=== PATIENT | female | born 1955 | race Caucasian/White ===

== ENCOUNTER 2023-08-03 11:09 | Emergency (ER) | payer OTHER, SELFPAY ==
[2023-08-03 11:15] VITALS: BP 129/77
[2023-08-03 12:06] LABS: % Basophils 0.9 % (0-2); % Eosinophils 5.5 % (0-6); % Immature Granulocytes 0.4 % (0-0.5); % Lymphocytes 27.9 % (20.5-51.1); % Monocytes 13.7 % (1.7-9.3); % Neutrophils 51.6 % (42.2-75.2); Absolute Basophils 0.1 10^3/uL (0-0.2); Absolute Eosinophils 0.4 10^3/uL (0-0.7); Absolute Lymphocytes 2.1 10^3/uL (1.2-3.4); Absolute Neutrophils 3.9 10^3/uL (1.4-6.5); Hematocrit 38.7 % (37.0-47.0); Hemoglobin 13.2 g/dL (12.0-16.0); Mean Corp Hgb Conc. 34.1 g/dL (33.0-37.0); Mean Corpuscular Hgb 29.8 pg (27.0-31.0); Mean Corpuscular Volume 87.4 fL (81.0-99.0); Mean Platelet Volume 9.2 fL (7.4-10.4); Nucleated Red Blood Cells % 0 %; Platelet Count 227 10^3/uL (130-400); Red Blood Cell Count 4.43 10^6/uL (4.20-5.40); Red Cell Dist. Width 12.8 % (11.5-14.5); White Blood Cell Count 7.6 10^3/uL (4.8-10.8)
[2023-08-03 12:28] LABS: ALT (SGPT) 31 U/L (0-35); AST (SGOT) 31 U/L (14-36); Albumin 4.3 g/dl (3.5-5.0); Alkaline Phosphatase 60 U/L (38-126); Blood Urea Nitrogen 9 mg/dl (7-17); Calcium 9.6 mg/dl (8.4-10.2); Carbon Dioxide 28 mmol/L (22-30); Chloride 98 mmol/L (98-107); Glucose 99 mg/dl (70-99); Potassium 4.4 mmol/L (3.5-5.1); Sodium 132 mmol/L (135-145); Total Bilirubin 0.5 mg/dl (0.2-1.3); Total Protein 6.6 g/dl (6.3-8.2); eGFR > 60.00
--- NOTE | 2023-08-03 13:03 | ED.GENMED ---
History of Present Illness
<Enid Ramsey PA-C - Last Filed: 08/03/23 18:18>
General
Chief Complaint: Breathing Problem
Source: patient
Exam Limitations: none
Time Seen by Provider: 08/03/23 12:22
Nursing documentation reviewed up to this point in time: agreed with
Travel History
Have you had any contact with someone who has COVID-19?: No
Do you have any symptoms of coronavirus? Fever > 100 degrees, chills, cough, shortness of breath, sore throat, loss of taste or smell, muscle aches, or headache?: No
History of Present Illness
History of Present Illness:
Patient is a 68-year-old female with history von Willebrand presenting to the emergency department for worsening shortness of breath in setting of URI symptoms. Patient reports initial onset of symptoms approximately 8 days ago with sore throat,
nasal congestion, cough. Symptoms persisted and she was seen at an urgent care in [place] this past Wednesday. At that point she was started on a course of Augmentin. She is taking 3 days of Augmentin and has not seen much improvement in
symptoms. Starting today she felt like she was having some worsening shortness of breath and chest pressure and became concerned about a developing pneumonia. She called her primary care who recommended she come to the emergency department for
chest x-ray. Patient does have an inhaler at home that she has been using with short-lived improvement in shortness of breath.
Patient denies any fevers, chills, chest pain. Patient denies any lower leg swelling or pain. Patient denies any hemoptysis.
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 No recent surgeries.
Past History
<Enid Ramsey PA-C - Last Filed: 08/03/23 18:18>
Past History
ED Past Medical History: Other (Breast cancer, von Willebrand's disease, PE)
ED Past Surgical History: Other (agree with documented pshx. Had bilateral breast mastectomy 2005 at [facility]. Had dense breasts with diffuse calcifications, DCIS left breast, LCIS right breast, all non invasive so she chose to have her breasts
removed and replaced. Had no radiation or chemo. Is followed every [address] Cortes, endocrinology who said she walked away with no residual breast cancer. Had gene test which was neg. 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 Last visit to ob/gynn is
next month. Saw PMD last week.)
Social History
Tobacco: Non-smoker
Personal:
Living: with family
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
Review of Systems
<Enid Ramsey PA-C - Last Filed: 08/03/23 18:18>
Review of Systems
Allergies reviewed?: Yes
All Other Systems: ROS reviewed and negative except as documented in HPI and ROS
Phy Exam
<Enid Ramsey PA-C - Last Filed: 08/03/23 18:18>
Physical Exam
Physical Exam:
Vitals: Patient's vital signs are stable. Afebrile
General: Patient is well appearing, no acute distress. Nontoxic-appearing
Skin: Warm and dry, no rashes or lesions
Head: Normocephalic, atraumatic
Eyes: Sclera nonicteric. EOMs intact. No nystagmus.
Throat: Protecting airway. Posterior pharynx not erythematous without any tonsillar edema or exudates.
Neck: Normal ROM, no cervical spine tenderness, no meningismus. Trachea midline
Cardiac: Regular rate and rhythm, no murmurs.
Pulm: Normal respiratory effort. No evidence of respiratory distress. Lungs relatively clear bilaterally with no wheezes, rales, rhonchi heard on exam. Oxygen saturation 97 on room air.
Abdomen: No abdominal tenderness.
Extremities: No evidence of cyanosis or edema. Bilateral calves without any edema or tenderness. DP pulses palpable and equal bilateral. No palpable cord
Neuro: AAOx3. CN II-XII intact. No focal neurologic deficits.
Psychiatric: Normal affect.
Scores
<Enid Ramsey PA-C - Last Filed: 08/03/23 18:18>
Heart Failure Risk
Heart Failure Risk Score: Not Applicable
Course
<Enid Ramsey PA-C - Last Filed: 08/03/23 18:18>
Orders/Labs/Results
Orders:
Orders
08/03/23 11:19
CR Chest - 2 Views Urgent
Comment:
Reason For Exam: cough, sob for 1 week.
08/03/23 11:57
Complete Blood Count/With Diff Urgent
Comprehensive Metabolic Panel Urgent
Abnormal Lab Results
08/03/23
11:57
Absolute Monos (auto) 1.0 H 10^3/uL
(0.1-0.6)
Monocytes % 13.7 H %
(1.7-9.3)
Sodium 132 L mmol/L
(135-145)
08/03/23 11:57
08/03/23 11:57
Vital Signs
Initial and Last Documented VS:
Initial Vital Signs
Temp Pulse Resp BP Pulse Ox
97.5 F 69 18 129/77 97
08/03/23 11:15 08/03/23 11:15 08/03/23 11:15 08/03/23 11:15 08/03/23 11:15
Last Documented Vital Signs
Temp Pulse Resp BP Pulse Ox
97.5 F 64 18 115/68 99
08/03/23 11:15 08/03/23 13:27 08/03/23 11:15 08/03/23 13:27 08/03/23 13:27
<Andres Lebron MD - Last Filed: 08/03/23 13:28>
Orders/Labs/Results
Orders:
Orders
08/03/23 11:19
CR Chest - 2 Views Urgent
Comment:
Reason For Exam: cough, sob for 1 week.
08/03/23 11:57
Complete Blood Count/With Diff Urgent
Comprehensive Metabolic Panel Urgent
Abnormal Lab Results
08/03/23
11:57
Absolute Monos (auto) 1.0 H 10^3/uL
(0.1-0.6)
Monocytes % 13.7 H %
(1.7-9.3)
Sodium 132 L mmol/L
(135-145)
08/03/23 11:57
08/03/23 11:57
Vital Signs
Initial and Last Documented VS:
Initial Vital Signs
Temp Pulse Resp BP Pulse Ox
97.5 F 69 18 129/77 97
08/03/23 11:15 08/03/23 11:15 08/03/23 11:15 08/03/23 11:15 08/03/23 11:15
Last Documented Vital Signs
Temp Pulse Resp BP Pulse Ox
97.5 F 64 18 115/68 99
08/03/23 11:15 08/03/23 13:27 08/03/23 11:15 08/03/23 13:27 08/03/23 13:27
<Enid Ramsey PA-C - Last Filed: 08/03/23 18:18>
MDM/Problems Addressed
Differential Diagnosis Includes:
Not limited to: Viral URI, bronchitis, sinusitis, pneumonia, doubt PE or ACS
MDM/Problems Addressed:
68-year-old female presenting with worsening shortness of breath in the setting of recent URI currently on antibiotics. Patient on day 3 of Augmentin. No fever, chills. Vital signs are stable. Patient is afebrile with normal oxygen saturation on
room air. She is well-appearing, nontoxic. Exam as above. Her lungs are relatively clear bilaterally in no apparent respiratory distress. She does have occasional dry cough. There is no clinical evidence of DVT on exam. Vital signs normal.
Labs obtained in triage noted. No clinically significant abnormalities. Chest x-ray was performed which shows no evidence of acute lobar pneumonia.
Suspect symptoms are related to viral bronchitis. 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 Although her history of von Willebrand's does make this much more unlikely. Recommended D-dimer test, although I do think PE is
unlikely. Patient very reluctant to stay for testing and ultimately declines. She is aware of risks associated with not receiving D-dimer lab test. Return precautions discussed at length. Will change antibiotics to doxycycline to cover for
atypical pathogens. Will do short course of steroid as patient has prednisone at home. Patient will follow with primary care provider all questions answered. Patient comfortable with plan.
Chronic conditions affecting care:
N/A
Acute Exacerbation and/or Progression of Chronic Illness:
N/A
<Enid Ramsey PA-C - Last Filed: 08/03/23 18:18>
*Radiology
Radiology exam reviewed: preliminary read by ED provider and radiology read reviewed
*Pulse Oximetry
Patient hypoxic: no
*EKG
Interpreted by ED Provider?: NA
*Health Concierge Interpretation
Rate: Health Concierge- N/A
*Critical Care Note
Total Time (30-74mins, 75-104mins- exclusive of procedures): Not Applicable
ED Attending Note
<Enid Ramsey PA-C - Last Filed: 08/03/23 18:18>
-
Portions of this chart may have been created with voice recognition software.� Occasional wrong word or��sound alike� substitutions may have occurred due to the inherent limitations of voice recognition software.
<Andres Lebron MD - Last Filed: 08/03/23 13:28>
ED Attending Note
Patient seen and examined by attending physician: Yes
I performed the substantive portion of visit, reviewed & personally made and approve the management plan that is documented in note by myself or ALEJANDRINA.: Yes
ED Attending Note:
68-year-old female URI symptoms for days. Some congestion some cough. Ear fullness. No shortness of breath pleuritic pain leg pain leg swelling or other complaints. Started Augmentin 3 days ago.
On exam patient is nontoxic in no distress. Lungs are relatively clear. Occasional dry cough. Speech is normal. No drooling or stridor. No lower extremity swelling or cord.
Impression likely ongoing URI/sinusitis. 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 However she has von Willebrand's disease and was very reluctant to stick around for this testing. Admittedly very
low suspicion for pulmonary emboli given no pleuritic pain no true shortness of breath more with coughing and congestion. No leg pain no leg swelling. 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 Patient is aware of the risk
of not doing a D-dimer and the reason for that remote workup. She elected to hold off on this testing. We will change for atypical coverage and do a short course of steroids.
Discharge Plan
Departure
Patient Disposition: Home (Routine Discharge)
Date of Disposition: 08/03/23
Time of Disposition: 13:09
Patient with high blood pressure during this ER visit?: No
Condition: Good
Covid-19: Not Applicable
Discharge Problem:
Acute bronchitis
Instructions: Shortness of Breath (Dyspnea) (DC), Bronchitis, Adult ED
Prescriptions:
New
doxycycline monohydrate 100 mg capsule
100 mg PO BID 10 Days Qty: 20 0RF
No Action
acetaminophen [Tylenol Arthritis] 650 MG tablet extended release
650 mg PO PRN PRN (Reason: pain)
cefadroxil 500 MG capsule
500 mg PO BID
mupirocin 1 APPLIC ointment
1 applic topical DAILY
diazepam 5 MG tablet
5 mg PO TIDPRN PRN (Reason: anxiety)
bupropion HCl 150 MG tablet extended release 24 hr
150 mg PO DAILY
amoxicillin-pot clavulanate 1 TABLET tablet
1 tab PO Q12 Qty: 14 0RF
hydrochlorothiazide 12.5 MG tablet
12.5 mg PO DAILY Qty: 7 0RF
amoxicillin-pot clavulanate 1 TABLET tablet
1 tab PO Q12 Qty: 13 0RF
Activity Restrictions/Additional Instructions:
- Return to the emergency department with any high fevers, worsening shortness of breath, chest pain, lower leg swelling or pain, severe abdominal pain, worsening in current symptoms, or any other concerns
-Your x-ray showed no evidence of pneumonia today.
-A prescription for doxycycline has been sent to your pharmacy. You can stop taking the Augmentin and switch to doxycycline.
-As discussed�you can take prednisone that you have at home. You can take 40 mg for 3 days, then 30 mg for 3 days, then 20 mg for 3 days, then 10 mg for 3 days
-Stay well-hydrated. Continue to use inhalers and nasal rinses as prescribed
-Follow-up with your primary care provider for further evaluation/management.
Interventions
Interventions:
*General Assessment Last Done: 08/03/23 13:27
*Neglect/Abuse Screening Last Done: 08/03/23 13:27
*Nursing Disposition Last Done: 08/03/23 13:27
ED- Cardiac Assessment Last Done: 08/03/23 13:25
ED- Pulmonary Assessment Last Done: 08/03/23 13:25
Discharge Date and Time
Discharge Date/Time: 08/03/23 13:28
Print Language: FIJIAN
[2023-08-03 13:26] VITALS: BP 115/68
[2023-08-03 13:27] VITALS: BP 115/68
== END 2023-08-03 13:28 | disposition home or self-care (01) ==
LOC: EMR 11:09
PROVIDERS: Emergency Medicine; EMERGENCY PHYSICIAN Emergency Medicine; FAMILY PHYSICIAN Student in an Organized Health Care Education/Training Program
DX: J20.9 Acute bronchitis, unspecified (principal); D68.00 Von Willebrand disease, unspecified; Z85.3 Personal history of malignant neoplasm of breast
CPT/HCPCS: 99283; 71046; 80053; 85025

== ENCOUNTER 2023-11-10 12:57 | Emergency (ER) | payer OTHER, SELFPAY ==
[2023-11-10 12:57] VITALS: BMI 22.2
[2023-11-10 12:59] VITALS: BP 135/83
--- NOTE | 2023-11-10 13:02 | ED.PDOC.TRB ---
ED Provider Triage
-
Patient seen by provider in Triage?: Seen in Triage
A medical screening examination has been initiated by a qualified medical provider. Based on the assessment performed at this time, it has been determined that an emergent medical condition may exist and the patient has been informed that further
medical evaluation and possible additional diagnostic testing may be needed.
HPI: This is a medical evaluation conducted in person to initiate diagnostic evaluation and provide initial therapeutics. Please see further documentation by the treating clinician.
GENERAL: Alert ,tearful
EYE: No visual abnormalities.
NECK: Trachea midline
ENT: No visible abnormalities.
LUNGS: No acute respiratory distress
NEUROLOGICAL: Alert and oriented
SKIN: no visible lesions.
MUSCULOSKELETAL: Moving extremities normally
PSYCH: Normal and appropriate interaction.
68-year-old female presenting to the emergency department 3 days after a slip in the bathroom where she hit her right forehead. She not lose consciousness slid to the ground did not sustain any additional injuries. Feels well at this point but
does have a history of von Willebrand disease so was concerned there could be some underlying injury. Head CT was ordered for further assessment. Otherwise very well-appearing here.
[2023-11-10 14:01] VITALS: BP 118/69
[2023-11-10 14:04] VITALS: BP 118/69
--- NOTE | 2023-11-10 14:04 | ED.GENMED ---
History of Present Illness
General
Chief Complaint: Fall
Source: patient
Time Seen by Provider: 11/10/23 13:50
History of Present Illness
History of Present Illness:
68yoF with a history of von Willebrand disease presenting for evaluation after a fall 3 days ago. Patient was getting into a bathtub when she slipped. She struck her head and face against the wall of the tub. There was no LOC. Patient was having
neck pain after the injury which has improved after seeing a chiropractor. Her current symptoms include a headache and pain with swallowing. She is worried that she has a brain bleed due to her history of von Willebrand disease. She denies any
visual changes, vomiting, dizziness, weakness, paresthesias. She is not on any blood thinners.
Past History
Past History
ED Past Medical History: Other (Breast cancer, von Willebrand's disease, PE)
ED Past Surgical History: Other (agree with documented pshx. Had bilateral breast mastectomy 2005 at [facility]. Had dense breasts with diffuse calcifications, DCIS left breast, LCIS right breast, all non invasive so she chose to have her breasts
removed and replaced. Had no radiation or chemo. Is followed every [address] Cortes, endocrinology who said she walked away with no residual breast cancer. Had gene test which was neg. Every other 6 months sees PIGMENT PROCESSOR. Last visit to ob/gynn is
next month. Saw PMD last week.)
Social History
Tobacco: Non-smoker
Personal:
Living: with family
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
Phy Exam
General Physical Exam
General Presentation: well appearing and no apparent distress
General age: appears stated age
General Skin: warm and dry
General Habitus: normal
General Mental: alert
ENT Exam
ENT Exam: TM's normal (No hemotympanum), neck supple and other (Normal phonation. Tolerating oral secretions without difficulty. No anterior neck tenderness. No carotid bruits. )
Eye Exam
Eye Exam: PERRL
Pulmonary Exam
Pulmonary Exam: lungs clear, no respiratory distress, chest non tender and no crackles
Gastrointestinal Exam
Gastrointestinal Exam: non tender, soft and non distended
Neurological Exam
Neurological Exam: alert
[place] Coma Scale
Eye Opening: Spontaneous
Verbal Response: Oriented
Motor Response: Obeys Commands
GCS Total Score: 15
Skin Exam
Skin Exam: normal color and warm/dry
Psychiatric Exam
Psychiatric Exam: normal mood/affect
Course
Orders/Labs/Results
Orders:
Orders
11/10/23 13:00
CT Head W/o Iv Contrast Urgent
Comment:
Reason For Exam: fall hit head right frontal, VWD
11/10/23 14:03
CT Cervical Spine W/o Iv Contr Urgent
Comment:
Reason For Exam: Neck pain, fall
Vital Signs
Initial and Last Documented VS:
Initial Vital Signs
Temp Pulse Resp BP Pulse Ox
98.5 F 73 18 135/83 98
11/10/23 12:59 11/10/23 12:59 11/10/23 12:59 11/10/23 12:59 11/10/23 12:59
Last Documented Vital Signs
Temp Pulse Resp BP Pulse Ox
98.0 F 72 16 121/69 100
11/10/23 14:04 11/10/23 16:22 11/10/23 16:22 11/10/23 16:22 11/10/23 16:22
MDM/Problems Addressed
Differential Diagnosis Includes:
68yoF here after a fall with head strike 3 days ago. C/o pain with swallowing. Hx of von Willebrand disease. Vitals are stable. She is awake, alert, with a GCS of 15. No external signs of head trauma on exam. No anterior neck tenderness or skin
changes. Phonation is normal. Differential diagnosis includes but is not limited to: closed head injury, concussion, intracranial hemorrhage, fracture
Initial ED plan: Check CT head and cervical spine.
*Critical Care Note
Total Time (30-74mins, 75-104mins- exclusive of procedures): Not Applicable
Update Note
Update Note:
Imaging is negative for traumatic injuries. She is stable for discharge. Supportive care discussed. Advised f/u with PCP. She was discharged in stable condition.
ED Attending Note
-
Portions of this chart may have been created with voice recognition software.� Occasional wrong word or��sound alike� substitutions may have occurred due to the inherent limitations of voice recognition software.
Discharge Plan
Departure
Patient Disposition: Home (Routine Discharge)
Date of Disposition: 11/10/23
Time of Disposition: 16:15
Patient with high blood pressure during this ER visit?: No
Discharge Problem:
Fall from slip, trip, or stumble, Closed head injury, Cervical muscle strain
Instructions: Cervical Sprain ED
Prescriptions:
No Action
acetaminophen [Tylenol Arthritis] 650 MG tablet extended release
650 mg PO PRN PRN (Reason: pain)
cefadroxil 500 MG capsule
500 mg PO BID
mupirocin 1 APPLIC ointment
1 applic topical DAILY
diazepam 5 MG tablet
5 mg PO TIDPRN PRN (Reason: anxiety)
bupropion HCl 150 MG tablet extended release 24 hr
150 mg PO DAILY
amoxicillin-pot clavulanate 1 TABLET tablet
1 tab PO Q12 Qty: 14 0RF
hydrochlorothiazide 12.5 MG tablet
12.5 mg PO DAILY Qty: 7 0RF
amoxicillin-pot clavulanate 1 TABLET tablet
1 tab PO Q12 Qty: 13 0RF
doxycycline monohydrate 100 mg capsule
100 mg PO BID 10 Days Qty: 20 0RF
Referrals:
Simran Bae MD [Family Provider] -
Stand Alone Forms: Return to Work
Activity Restrictions/Additional Instructions:
Apply ice to affected area. Take Tylenol as needed for pain.
Please follow-up with your family doctor. Return to the ER with any new or worsening symptoms.
Interventions
Interventions:
*Risk Screen - Suicide Last Done: 11/10/23 13:53
*General Assessment Last Done: 11/10/23 13:53
*Neglect/Abuse Screening Last Done: 11/10/23 13:53
ED- Fall Risk Assessment Last Done: 11/10/23 16:22
*ED COVID-19 Vaccine History Last Done: 11/10/23 13:53
*Nursing Disposition Last Done: 11/10/23 16:23
ED-Musculoskeletal Assessment Last Done: 11/10/23 13:53
ED- Neurological Assessment Last Done: 11/10/23 13:53
ED-Skin Assessment Last Done: 11/10/23 13:53
Discharge Date and Time
Discharge Date/Time: 11/10/23 16:24
Print Language: GERMAN
[2023-11-10 16:22] VITALS: BP 121/69
== END 2023-11-10 16:24 | disposition home or self-care (01) ==
LOC: EMR 12:57
PROVIDERS: EMERGENCY PHYSICIAN Emergency Medicine; FAMILY PHYSICIAN Student in an Organized Health Care Education/Training Program
DX: S09.90XA Unspecified injury of head, initial encounter (principal); S16.1XXA Strain of muscle, fascia and tendon at neck level, initial encounter; W01.0XXA Fall on same level from slipping, tripping and stumbling without subsequent striking against object, initial encounter; D68.00 Von Willebrand disease, unspecified; Z85.3 Personal history of malignant neoplasm of breast
CPT/HCPCS: 99284; 70450; 72125

== ENCOUNTER → 2024-02-29 10:44 | Outpatient (REF) | payer OTHER, SELFPAY | LOC: WDC 10:44 | PROVIDERS: ATTENDING PHYSICIAN Internal Medicine Hematology; FAMILY PHYSICIAN Family Medicine | DX: N63.31 Unspecified lump in axillary tail of the right breast (principal); R59.1 Generalized enlarged lymph nodes | CPT/HCPCS: 76642 ==

== ENCOUNTER 2024-07-25 03:03 | Emergency (ER) | payer OTHER, SELFPAY ==
[2024-07-25 03:03] VITALS: BMI 27.3
[2024-07-25 03:05] VITALS: BP 138/78
[2024-07-25 03:32] LABS: % Basophils 0.5 % (0-2); % Eosinophils 5.9 % (0-6); % Immature Granulocytes 0.3 % (0-0.5); % Lymphocytes 19.2 % (20.5-51.1); % Monocytes 8.5 % (1.7-9.3); % Neutrophils 65.6 % (42.2-75.2); Absolute Basophils 0.1 10^3/uL (0-0.2); Absolute Eosinophils 0.6 10^3/uL (0-0.7); Absolute Lymphocytes 2.1 10^3/uL (1.2-3.4); Absolute Monocytes 0.9 10^3/uL (0.1-0.6); Absolute Neutrophils 7.1 10^3/uL (1.4-6.5); Hematocrit 29.9 % (37.0-47.0); Hemoglobin 10.4 g/dL (12.0-16.0); Mean Corp Hgb Conc. 34.8 g/dL (33.0-37.0); Mean Corpuscular Hgb 30.2 pg (27.0-31.0); Mean Corpuscular Volume 86.9 fL (81.0-99.0); Mean Platelet Volume 9.2 fL (7.4-10.4); Nucleated Red Blood Cells % 0 %; Platelet Count 201 10^3/uL (130-400); Red Blood Cell Count 3.44 10^6/uL (4.20-5.40); Red Cell Dist. Width 12.7 % (11.5-14.5); White Blood Cell Count 10.8 10^3/uL (4.8-10.8)
[2024-07-25 03:37] LABS: Urine Albumin Negative (Neg - Trace); Urine Bilirubin Negative (Negative); Urine Character Slightly Cloudy (Clear); Urine Color Yellow; Urine Glucose Negative (Negative); Urine Ketone Negative (Negative); Urine Leukocyte Negative (Negative); Urine Nitrite Negative (Negative); Urine Occult Blood 2+ (Negative); Urine Urobilinogen Negative (Neg - 1+)
[2024-07-25 03:57] LABS: Lactic Acid 0.6 mmol/L (0.7-2.0)
[2024-07-25 03:58] LABS: ALT (SGPT) 64 U/L (0-35); AST (SGOT) 65 U/L (14-36); Albumin 4.2 g/dl (3.5-5.0); Alkaline Phosphatase 84 U/L (38-126); Blood Urea Nitrogen 9 mg/dl (7-17); Calcium 8.9 mg/dl (8.4-10.2); Carbon Dioxide 26 mmol/L (22-30); Chloride 95 mmol/L (98-107); Glucose 103 mg/dl (70-99); Potassium 4.4 mmol/L (3.5-5.1); Sodium 125 mmol/L (135-145); Total Bilirubin 0.5 mg/dl (0.2-1.3); Total Protein 6.5 g/dl (6.3-8.2); eGFR > 60.00
[2024-07-25 04:04] LABS: Urine Squamous Cell 26-30 /LPF (Few)
[2024-07-25 04:05] LABS: Urine White Cell 0-2 /HPF (0-5)
[2024-07-25 05:51] VITALS: BP 122/59
[2024-07-25 06:00] VITALS: BP 124/61
--- NOTE | 2024-07-25 06:17 | ED.GENMED ---
History of Present Illness
<COSME Mathis - Last Filed: 07/25/24 10:52>
General
Chief Complaint: Post Operative Problem(s)
Source: patient
Exam Limitations: none
Time Seen by Provider: 07/25/24 06:03
Nursing documentation reviewed up to this point in time: agreed with
History of Present Illness
History of Present Illness:
Patient is a 69-year-old female with history of von Willebrand's status post laparoscopic total abdominal hysterectomy with bladder sling and anal rectal wall reconstruction. The surgery was done at [facility] on Wednesday 4 days ago by
Zamzam Young(urogynecology) she does have a history of von Willebrand's and took intranasal Stimate yesterday as instructed. She presents here complaining increasing abdominal pain swelling and now feels hard to take a deep breath because of the
discomfort. This pain is got increasingly worse over the past several days but worsened yesterday. She has been taking her Dilaudid along with Tylenol. Her last dose of Dilaudid was 1 PM yesterday. She is on MiraLAX and stool softener she did
move her bowels here in the ER. She has not had any difficulty urinating. She does feel that she is more swollen in her lower extremities
Past History
<COSME Mathis - Last Filed: 07/25/24 10:52>
Past History
ED Past Medical History: Other (Breast cancer, von Willebrand's disease, PE)
ED Past Surgical History: Other (agree with documented pshx. Had bilateral breast mastectomy 2005 at [facility]. Had dense breasts with diffuse calcifications, DCIS left breast, LCIS right breast, all non invasive so she chose to have her breasts
removed and replaced. Had no radiation or chemo. Is followed every [address] Cortes, endocrinology who said she walked away with no residual breast cancer. Had gene test which was neg. Every other 6 months sees PATIENT ACCESS SPECIALIST. Last visit to ob/gynn is
next month. Saw PMD last week.)
Social History
Tobacco: Non-smoker
Personal:
Living: with family
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
Phy Exam
<COSME Mathis - Last Filed: 07/25/24 10:52>
General Physical Exam
General Presentation: no apparent distress
General age: appears stated age
General Skin: warm and dry
General Habitus: normal
General Mental: alert
General Hydration: appears well hydrated
Cardiovascular Exam
Cardiovascular Exam: regular rate/rhythm
Pulmonary Exam
Pulmonary Exam: lungs clear and no respiratory distress
Gastrointestinal Exam
Gastrointestinal Exam: other ( + BS abd is mildly distended mild nonspecific tenderness + Postsurgical laparoscopic sites without any evidence of infection)
Neurological Exam
Neurological Exam: alert and oriented x3
Musculoskeletal Exam
Musculoskeletal Exam: full ROM and other (no obvious extremity swelling )
Skin Exam
Skin Exam: normal color and warm/dry
Psychiatric Exam
Psychiatric Exam: normal mood/affect
Sepsis
<COSME Mathis - Last Filed: 07/25/24 10:52>
Sepsis Screening
Sepsis Assessment: Sepsis Ruled Out
Sepsis Screen
Sepsis Screen: Sepsis Ruled Out
Date: 07/25/24
Time: 10:52
Course
<COSME Mathis - Last Filed: 07/25/24 10:52>
Orders/Labs/Results
Orders:
Orders
07/25/24 03:21
Complete Blood Count/With Diff Urgent
Comprehensive Metabolic Panel Urgent
Lactic Acid Urgent
07/25/24 03:30
Urinalysis Urgent
Date Specimen was Collected: 07/25/24
Time Specimen was Collected: 03:12
Urine Microscopic Urgent
Date Specimen was Collected: 07/25/24
Time Specimen was Collected: 03:12
07/25/24 06:19
0.9% Sodium Chloride 1000 ml [Nss] 1,000 ml IV BOLUS
HYDROmorphone [Dilaudid] 0.5 mg IV NOW STA
Ondansetron Injectable [Zofran] 4 mg IV NOW STA
07/25/24 06:20
CT Abd/pelvis W Iv Cont Urgent
Comment:
Reason For Exam: s/p ALEXUS/bladder sling , pain distention
07/25/24 08:53
Enema- Treatment ONCE
Type: Milk of Molasses
Ketorolac [Toradol] 15 mg IV NOW STA
Abnormal Lab Results
07/25/24 07/25/24
03:21 03:30
RBC 3.44 L 10^6/uL
(4.20-5.40)
Hgb 10.4 L g/dL
(12.0-16.0)
Hct 29.9 L %
(37.0-47.0)
Absolute Neuts (auto) 7.1 H 10^3/uL
(1.4-6.5)
Absolute Monos (auto) 0.9 H 10^3/uL
(0.1-0.6)
Lymphocytes % 19.2 L %
(20.5-51.1)
Sodium 125 L mmol/L
(135-145)
Chloride 95 L mmol/L
(98-107)
Creatinine 0.5 L mg/dL
(0.6-1.0)
Glucose 103 H mg/dl
(70-99)
Lactic Acid 0.6 L mmol/L
(0.7-2.0)
AST 65 H U/L
(14-36)
ALT 64 H U/L
(0-35)
Urine Occult Blood 2+ A
(Negative)
Urine RBC 7-10 A /HPF
(0-2)
07/25/24 03:21
07/25/24 03:21
Vital Signs
Initial and Last Documented VS:
Initial Vital Signs
Temp Pulse Resp BP Pulse Ox
97.7 F 60 24 138/78 96
07/25/24 03:05 07/25/24 03:05 07/25/24 03:05 07/25/24 03:05 07/25/24 03:05
Last Documented Vital Signs
Temp Pulse Resp BP Pulse Ox
97.9 F 56 17 107/53 95
07/25/24 06:12 07/25/24 06:45 07/25/24 06:45 07/25/24 06:30 07/25/24 06:45
Motorcycle Subassembler consulted with Physician
Motorcycle Subassembler consulted with physician?: Yes
Name of Physician Consulted: Yunior
<Yonny Mojica, DO - Last Filed: 07/25/24 07:26>
Orders/Labs/Results
Orders:
Orders
07/25/24 03:21
Complete Blood Count/With Diff Urgent
Comprehensive Metabolic Panel Urgent
Lactic Acid Urgent
07/25/24 03:30
Urinalysis Urgent
Date Specimen was Collected: 07/25/24
Time Specimen was Collected: 03:12
Urine Microscopic Urgent
Date Specimen was Collected: 07/25/24
Time Specimen was Collected: 03:12
07/25/24 06:19
0.9% Sodium Chloride 1000 ml [Nss] 1,000 ml IV BOLUS
HYDROmorphone [Dilaudid] 0.5 mg IV NOW STA
Ondansetron Injectable [Zofran] 4 mg IV NOW STA
07/25/24 06:20
CT Abd/pelvis W Iv Cont Urgent
Comment:
Reason For Exam: s/p ALEXUS/bladder sling , pain distention
07/25/24 08:53
Enema- Treatment ONCE
Type: Milk of Molasses
Ketorolac [Toradol] 15 mg IV NOW STA
Abnormal Lab Results
07/25/24 07/25/24
03:21 03:30
RBC 3.44 L 10^6/uL
(4.20-5.40)
Hgb 10.4 L g/dL
(12.0-16.0)
Hct 29.9 L %
(37.0-47.0)
Absolute Neuts (auto) 7.1 H 10^3/uL
(1.4-6.5)
Absolute Monos (auto) 0.9 H 10^3/uL
(0.1-0.6)
Lymphocytes % 19.2 L %
(20.5-51.1)
Sodium 125 L mmol/L
(135-145)
Chloride 95 L mmol/L
(98-107)
Creatinine 0.5 L mg/dL
(0.6-1.0)
Glucose 103 H mg/dl
(70-99)
Lactic Acid 0.6 L mmol/L
(0.7-2.0)
AST 65 H U/L
(14-36)
ALT 64 H U/L
(0-35)
Urine Occult Blood 2+ A
(Negative)
Urine RBC 7-10 A /HPF
(0-2)
07/25/24 03:21
07/25/24 03:21
Vital Signs
Initial and Last Documented VS:
Initial Vital Signs
Temp Pulse Resp BP Pulse Ox
97.7 F 60 24 138/78 96
07/25/24 03:05 07/25/24 03:05 07/25/24 03:05 07/25/24 03:05 07/25/24 03:05
Last Documented Vital Signs
Temp Pulse Resp BP Pulse Ox
97.9 F 56 17 107/53 95
07/25/24 06:12 07/25/24 06:45 07/25/24 06:45 07/25/24 06:30 07/25/24 06:45
<COSME Mathis - Last Filed: 07/25/24 10:52>
MDM/Problems Addressed
Differential Diagnosis Includes:
Not limited to gas pain, constipation, obstruction, possible perforation
MDM/Problems Addressed:
As documented patient is a 69-year-old female status post total abdominal hysterectomy bladder sling surgery and anal rectal wall reconstructive surgery. The surgery was done as documented at [facility] 4 days ago. Patient complains of increasing
abdominal distention and difficulty taking a deep breath because abdominal distention and discomfort. She did move her bowels here in the ER. Patient on exam seems mildly distended however not tachypneic not hypoxic afebrile no acute distress.
CAT scan was done and official report also reviewed by radiology. There is moderate colonic stool burden without evidence of obstruction. In addition the liver appears mildly heterogeneous and diffusely hypoattenuating patient's LFTs are very
minimally elevated possible concern for hepatitis. She does have a normal bilirubin. Small bilateral pleural effusions. I did review CAT scan findings with patient and .
Patient was given enema here and Toradol feeling much better along with Zofran and fluids.
I did leave a message with patient's surgeon however did not receive a call back however patient is stable for discharge home she is instructed to follow-up with the surgeon as scheduled and also follow-up with her family doctor neck several days
reevaluation of her symptoms as well as repeat sodium recheck. She is ambulatory with a steady gait nontachypneic afebrile no acute distress.
<COSME Mathis - Last Filed: 07/25/24 10:52>
*Radiology
Radiology exam reviewed: radiology read reviewed
*Pulse Oximetry
Patient hypoxic: no
*Critical Care Note
Total Time (30-74mins, 75-104mins- exclusive of procedures): Not Applicable
ED Attending Note
<COSME Mathis - Last Filed: 07/25/24 10:52>
-
Portions of this chart may have been created with voice recognition software.� Occasional wrong word or��sound alike� substitutions may have occurred due to the inherent limitations of voice recognition software.
<Yonny Mojica DO - Last Filed: 07/25/24 07:26>
ED Attending Note
Patient seen and examined by attending physician: Yes
I performed the substantive portion of visit, reviewed & personally made and approve the management plan that is documented in note by myself or ALEJANDRINA.: Yes
ED Attending Note:
I have seen and evaluated the patient with a [id number] encounter. I have spoken to the advance practicer provider and involved in the medical history, the physical exam, medical decision making.
Evaluation and management service: agree unless noted differently below.
Results interpretation: agree unless noted differently below.
Focused HPI: 69-year-old female presenting with generalized abdominal pain. Patient recent had hysterectomy and pelvic sling. This was performed at [facility] a few days ago. Patient was pretreated with MiraLAX and has been compliant with Colace and
MiraLAX. She had a recent bowel movement
Physical exam: Postsurgical incisions are clean and intact. Mildly distended abdomen but otherwise soft
Medical Decision Making: CT performed showing significant amount of stool. Official read pending to rule out any of hernia or ileus or small bowel function. She is not actively vomiting
After CT read is back, will have her surgeons made aware to discuss disposition
Discharge Plan
Departure
Patient Disposition: Home (Routine Discharge)
Date of Disposition: 07/25/24
Time of Disposition: 10:24
Patient with high blood pressure during this ER visit?: No
Covid-19: Not Applicable
Discharge Problem:
Constipation, Acute hyponatremia
Instructions: Constipation, Adult (DC), Hypovolemia in adults
Prescriptions:
New
ondansetron 4 mg tablet,disintegrating
4 mg PO Q8H PRN (Reason: nausea and vomiting) Qty: 10 0RF
No Action
acetaminophen [Tylenol Arthritis] 650 MG tablet extended release
650 mg PO PRN PRN (Reason: pain)
cefadroxil 500 MG capsule
500 mg PO BID
mupirocin 1 APPLIC ointment
1 applic topical DAILY
diazepam 5 MG tablet
5 mg PO TIDPRN PRN (Reason: anxiety)
bupropion HCl 150 MG tablet extended release 24 hr
150 mg PO DAILY
amoxicillin-pot clavulanate 1 TABLET tablet
1 tab PO Q12 Qty: 14 0RF
hydrochlorothiazide 12.5 MG tablet
12.5 mg PO DAILY Qty: 7 0RF
amoxicillin-pot clavulanate 1 TABLET tablet
1 tab PO Q12 Qty: 13 0RF
doxycycline monohydrate 100 mg capsule
100 mg PO BID 10 Days Qty: 20 0RF
Referrals:
UNKNOWN - PT DOES,NOT KNOW [Unknown Provider] -
Activity Restrictions/Additional Instructions:
As discussed stay well-hydrated be sure to increase your water intake. Please continue [id number] Colace and MiraLAX you may take a laxative if needed. You may take Zofran for nausea. You may take ibuprofen every 8 hours for pain. Closely
follow-up with your surgeon as scheduled and please follow with a family doctor in the next several days for reevaluation of your symptoms.
As discussed your CAT scan does show findings consistent with mild hepatitis. Your liver functions are very minimally elevated. Closely follow up with your family doctor for this.
Return if any worsening of symptoms, including fever chills or increasing abdominal pain nausea vomiting. You sodium level was low and will need to be re-checked in the next 2-3 days.
Interventions
Interventions:
*Risk Screen - Suicide Last Done: 07/25/24 03:05
*General Assessment Last Done: 07/25/24 06:10
*Neglect/Abuse Screening Last Done: 07/25/24 03:05
*ED- Fall Risk Assessment Last Done: 07/25/24 06:10
*ED COVID-19 Vaccine History Last Done: 07/25/24 10:38
*Nursing Disposition Last Done: 07/25/24 10:38
VK-Iithbb-Vmkzxxqceh Assessment Last Done: 07/25/24 06:06
ED-Skin Assessment Last Done: 07/25/24 06:06
Discharge Date and Time
Discharge Date/Time: 07/25/24 10:38
Print Language: AUSTRALIAN
[2024-07-25] MEDS: ZOFRAN 4 MG IV (06:25)
[2024-07-25] MEDS: NSS 1000 IV (06:26)
[2024-07-25] MEDS: DILAUDID 0.5 MG IV (06:26)
[2024-07-25 06:30] VITALS: BP 107/53
[2024-07-25] MEDS: TORADOL 15 MG IV (08:56)
== END 2024-07-25 10:38 | disposition home or self-care (01) ==
LOC: EMR 03:03
PROVIDERS: Emergency Medicine; EMERGENCY PHYSICIAN Student in an Organized Health Care Education/Training Program; FAMILY PHYSICIAN Family Medicine
DX: K59.00 Constipation, unspecified (principal); E87.1 Hypo-osmolality and hyponatremia; J90 Pleural effusion, not elsewhere classified; D68.00 Von Willebrand disease, unspecified; Z90.710 Acquired absence of both cervix and uterus; Z85.3 Personal history of malignant neoplasm of breast
CPT/HCPCS: 96374; 96375; 96361; 99284; 74177; 80053; 81003; 81015; 83605; 85025; Q9967